=== PATIENT | female | born 1985 | race Caucasian/White ===

== ENCOUNTER 2018-08-03 03:16 | Outpatient (CLI) | payer OTHER | END 2018-08-03 03:17 | disposition EMS.NT | LOC: EMS 03:16 | PROVIDERS: ATTEND Surgery | DX: R56.9 Unspecified convulsions (principal) ==

== ENCOUNTER 2018-08-20 12:51 | Outpatient (CLI) | payer OTHER ==
--- NOTE | 2018-08-20 23:38 | MRI Report ---
Reason: UNSPECIFIED CONVULSIONS Procedure Date: 08/20/2018 Accession Number: [id number] / [id number] Procedure: MRI - Brain W/O CPT Code: FULL RESULT: EXAM: MRI BRAIN WITHOUT CONTRAST EXAM DATE: 08/20/2018 02:16 PM. CLINICAL HISTORY: UNSPECIFIED CONVULSIONS. COMPARISON: None. TECHNIQUE: Multiplanar, multisequence T1-weighted and fluid-sensitive MR sequences of the brain were performed. Sequences optimized for routine evaluation. Other: None. IV Contrast: None. FINDINGS: Brain Volume: Normal for age. Parenchyma/Dura: No mass, acute infarct or hemorrhage. No white matter lesions identified. Ventricles/Cisterns: No hydrocephalus. No abnormal extra-axial fluid collection or hemorrhage. Orbits: Symmetric and unremarkable. Sella Turcica: The pituitary gland, cavernous sinuses, suprasellar cistern and optic chiasm are unremarkable. IAC: Symmetric and unremarkable. Vasculature: Normal signal flow void is seen in the major arterial structures at the skull base. Sinuses: There is a retention cyst in the left maxillary antrum and a small retention cyst in the right maxillary antrum. Bones: No focal pathologic appearing marrow signal changes. Other: None. IMPRESSION: 1. Normal brain MRI. 2. Retention cysts in the maxillary antra. RADIA
== END 2018-08-20 12:52 | disposition home or self-care (01) ==
LOC: DI 12:51
DX: R56.9 Unspecified convulsions (principal); J34.1 Cyst and mucocele of nose and nasal sinus
CPT/HCPCS: 70551

== ENCOUNTER 2019-01-14 11:18 | Outpatient (CLI) | payer OTHER | END 2019-01-14 11:19 | disposition EMS.NT | LOC: EMS 11:18 | PROVIDERS: ATTEND Surgery | DX: R56.9 Unspecified convulsions (principal) ==

== ENCOUNTER 2021-06-28 13:30 | Outpatient (CLI) | payer OTHER ==
--- NOTE | 2021-06-28 17:12 | MRI Report ---
PROCEDURE: Shoulder LT W/O INDICATIONS: PAIN IN LEFT SHOULDER TECHNIQUE: Noncontrast oblique coronal T2 fast spin echo with fat saturation, oblique sagittal T1 spin echo and T2 fast spin echo with fat saturation, axial T1 spin echo and T2 fast spin echo with fat saturation t hrough the shoulder. COMPARISON: None. FINDINGS: Rotator cuff: Severe supraspinatus tendinopathy with low-grade bursal and articular surface fraying. Interstitial t earing is also noted. Infraspinatus tendinopathy and thickening. Teres minor tendon appears intact. S ubscapularis tendinopathy and interstitial tearing. No atrophy of the rotator cuff muscles. Mild fatt y saturation of the infraspinatus. Bones and bursae: No bone marrow contusions or fractures. Presumed reactive marrow edema seen at the anterior aspect o f the greater tuberosity. Mild acromioclavicular joint degeneration. The acromion demonstrates conventional anatomy, without an os acromiale. Mild subacromial/subdeltoid bursal fluid is present. Capsule and soft tissues: Labrum: No intrasubstance fluid signal intensity to suggest discrete tear. There is mild blunted appe arance of the posterior labrum raising possibility of low-grade chronic tear versus degeneration. Sug gestion of posterior subluxation of the humeral head relative to the glenoid however this could be fa lsely accentuated by interval rotation of the humerus at the time of the study. Ligaments/capsule: The superior and inferior glenohumeral ligaments appear intact. Long head biceps tendon: Long head biceps tendon appears intact. Rotator interval: Normal signal intensity. Coracohumeral ligament: Intact. IMPRESSION: Supraspinatus and infraspinatus tendinopathy. Low-grade bursal and articular surface fraying of the s upraspinatus tendon. Subscapularis tendinopathy and interstitial tearing. Mild subacromial-subdeltoid bursitis. Chronic mild blunted appearance of the posterior labrum as above. Reviewed by: Rommel Hull MD on 06/28/2021 5:11 PM PDT Approved by: Rommel Hull MD on 06/28/2021 5:11 PM PDT Station ID: [id number]
== END 2021-06-28 13:31 | disposition home or self-care (01) ==
LOC: DI 13:30
PROVIDERS: ATTEND Student in an Organized Health Care Education/Training Program
DX: M75.102 Unspecified rotator cuff tear or rupture of left shoulder, not specified as traumatic (principal); M75.52 Bursitis of left shoulder